=== PATIENT | male | born 1990 | race Caucasian/White ===

== ENCOUNTER 2018-04-29 14:14 | Emergency (ER) | payer SELFPAY | END 2018-04-29 14:28 | disposition left against medical advice (07) | LOC: JP.ED 14:14 | DX: Z53.21 Procedure and treatment not carried out due to patient leaving prior to being seen by health care provider (principal) ==

== ENCOUNTER 2018-05-15 21:58 | Emergency (ER) | payer SELFPAY ==
--- NOTE | 2018-05-15 22:50 | EDM.PDOC ---
ED HPI GENERAL MEDICAL PROBLEM - General Chief Complaint: Drug or Alcohol Abuse Stated Complaint: HEART ISSUES Time Seen by Provider: 05/15/18 22:44 Source of Information: Reports: Patient, RN Notes Reviewed History Limitations: Reports: No Limitations - History of Present Illness INITIAL COMMENTS - FREE TEXT/NARRATIVE: 28-year-old gentleman presents to emergency department today complaint of palpitations and chest pressure, he has a long extensive history of recreational drug use does admit to using methamphetamine and cannabis earlier this evening he states he's felt these palpitations for about 2 hours Treatments HEALTH CARE ATTORNEY: Reports: EKG - Related Data Allergies Allergy/AdvReac Type Severity Reaction Status Date / Time No Known Allergies Allergy Verified 07/19/13 22:13 Home Meds: Home Meds Buprenorphine HCl/Naloxone HCl [Suboxone 12 mg-3 mg Sl Film] 1 film SL DAILY [History] Past Medical History Genitourinary History: Reports: Renal Calculus Neurological History: Reports: Seizure Psychiatric History: Reports: ADD, Addiction, Anxiety, Bipolar, Panic Attack Social & Family History - Tobacco Use Smoking Status *Q: Current Every Day Smoker Years of Tobacco use: 15 Packs/Tins Daily: 0.3 - Caffeine Use Caffeine Use: Reports: None - Recreational Drug Use Recreational Drug Use: Yes Drug Use in Last 12 Months: Yes Recreational Drug Type: Reports: Heroin, Ketamines, LSD (Acid), Marijuana/ Hashish, Methamphetamine, Other (see below) Other Recreational Drug Type: states he has done lots Recreational Drug Use Frequency: Daily ED ROS GENERAL - Review of Systems Review Of Systems: See Below Constitutional: Reports: No Symptoms HEENT: Reports: No Symptoms Respiratory: Reports: No Symptoms Cardiovascular: Reports: Chest Pain, Palpitations GI/Abdominal: Reports: No Symptoms : Reports: No Symptoms Musculoskeletal: Reports: No Symptoms ED EXAM, GENERAL - Physical Exam Exam: See Below Exam Limited By: No Limitations General Appearance: Alert, Anxious Eye Exam: Bilateral Eye: Normal Inspection, PERRL Throat/Mouth: Normal Inspection, Normal Lips, Normal Gums, Normal Oropharynx, Normal Voice, No Airway Compromise Head: Atraumatic, Normocephalic Neck: Normal Inspection, Supple, Non-Tender, Full Range of Motion Respiratory/Chest: No Respiratory Distress, Lungs Clear, Normal Breath Sounds, No Accessory Muscle Use Cardiovascular: Regular Rate, Rhythm, No Murmur GI/Abdominal: Soft, Non-Tender Course - Vital Signs Last Recorded V/S: Last Vital Signs Temp 95.1 F L 05/15/18 22:42 Pulse 55 L 05/16/18 06:14 Resp 16 05/16/18 06:14 BP 105/64 05/16/18 06:14 Pulse Ox 100 05/16/18 06:14 - Orders/Labs/Meds Orders: Active Orders 24 hr Category Date Time Status Cardiac Monitoring [RC] .As Directed Care 05/15/18 22:48 Inactive DRUG SCREEN, URINE [URCHEM] Stat Lab 05/15/18 22:48 Ordered UA W/MICROSCOPIC [URIN] Stat Lab 05/15/18 22:48 Ordered Labs: Laboratory Tests 05/15/18 05/15/18 05/16/18 Range/Units 22:55 22:55 00:01 WBC 8.2 (4.5-11.0) K/uL RBC 4.12 L (4.30-5.90) M/uL Hgb 12.8 (12.0-15.0) g/dL Hct 37.7 L (40.0-54.0) % MCV 92 (80-98) fL MCH 31 (27-31) pg MCHC 34 (32-36) % Plt Count 319 (150-400) K/uL Neut % (Auto) 67 H (36-66) % Lymph % (Auto) 19 L (24-44) % [place] % (Auto) 11 H (2-6) % Eos % (Auto) 2 (2-4) % Baso % (Auto) 1 (0-1) % Sodium 138 L (140-148) mmol/L Potassium 3.8 (3.6-5.2) mmol/L Chloride 99 L (100-108) mmol/L Carbon Dioxide 31 (21-32) mmol/L Anion Gap 11.8 (5.0-14.0) mmol/L BUN 16 (7-18) mg/dL Creatinine 1.1 (0.8-1.3) mg/dL Est Cr Clr Drug Dosing 111.98 mL/min Estimated GFR (MDRD) > 60 (>60) Glucose 104 (74-106) mg/dL Calcium 9.1 (8.5-10.1) mg/dL Total Bilirubin 0.4 (0.2-1.0) mg/dL AST 159 H (15-37) U/L ALT 353 H (12-78) U/L Alkaline Phosphatase 110 (46-116) U/L CK-MB (CK-2) 3.6 (0-3.6) mg/mL Troponin I < 0.017 (0.000-0.056) ng/mL Total Protein 7.4 (6.4-8.2) g/dL Albumin 3.5 (3.4-5.0) g/dL Globulin 3.9 H (2.3-3.5) g/dL Albumin/Globulin Ratio 0.9 L (1.2-2.2) Ethyl Alcohol < 3 mg/dL Departure - Departure Time of Disposition: 06:30 Disposition: Home, Self-Care 01 Condition: Poor Clinical Impression: Recreational drug use Referrals: PCP,None [Primary Care Provider] - Forms: ED Department Discharge Additional Instructions: Recommend stop using recreational drugs please follow-up with primary care provider as needed - My Orders Last 24 Hours: My Active Orders 05/15/18 22:48 Cardiac Monitoring [RC] .As Directed DRUG SCREEN, URINE [URCHEM] Stat UA W/MICROSCOPIC [URIN] Stat - Assessment/Plan Last 24 Hours: My Active Orders 05/15/18 22:48 Cardiac Monitoring [RC] .As Directed DRUG SCREEN, URINE [URCHEM] Stat UA W/MICROSCOPIC [URIN] Stat Plan: Assessment Acuity = acute Site and laterality = probable methamphetamine and cannabis intoxication Etiology = illicit drug use Manifestations = paranoia Location of injury = Home Lab values = CBC unremarkable CMP reveals elevated liver enzymes of AST 159 and ALTs 32-3 remainder is unremarkable alcohol is negative urine was never provided , EKG demonstrates normal sinus rhythm Plan After several hours he was able to call a friend for right home recommend stop using illicit drugs This note was dictated using [employer] voice recognition software please call with any questions on syntax or grammar.
== END 2018-05-16 06:37 | disposition home or self-care (01) ==
LOC: JP.ED 21:58
DX: F19.90 Other psychoactive substance use, unspecified, uncomplicated (principal); F17.210 Nicotine dependence, cigarettes, uncomplicated; Z79.899 Other long term (current) drug therapy
CPT/HCPCS: 36415; 80053; 82553; 84484; 85025; 99284; G0480; 99283